=== PATIENT | male | born 1975 | race Caucasian/White ===

== ENCOUNTER → 2021-04-12 10:12 | Outpatient (CLI) | payer OTHER, SELFPAY | PROVIDERS: PCP Pediatrics; Visit Provider Family Medicine | DX: Z23 Encounter for immunization (principal) | CPT/HCPCS: 0004A; 91300 ==

== ENCOUNTER 2022-11-26 14:56 | Emergency (ER) | payer OTHER, SELFPAY ==
[2022-11-26 14:57] VITALS: BP 175/124; PULSE 108; RESP 18; TEMP 36.8; O2SAT 98; BMI 30.9
--- NOTE | 2022-11-26 15:23 | EKG12_ITS ---
Test Reason : DIZZINESS Blood Pressure : / mmHG Vent. Rate : 093 BPM Atrial Rate : 093 BPM P-R Int : 136 ms QRS Dur : 082 ms QT Int : 330 ms P-R-T Axes : 040 029 002 degrees QTc Int : 410 ms Sinus rhythm with marked sinus arrhythmia Otherwise normal ECG Confirmed by KIKA HENSLEY, SAMM ([id number]), supervising film or videotape editor ISHAN BATES ([id number]) on 11/27/2022 9:04:58 AM Referred By: YANNI Confirmed By:SAMM ANAND MD
[2022-11-26] MEDS: Meclizine HCl 25 MG Tablet PO (15:35)
--- NOTE | 2022-11-26 15:38 | RAD_ITS ---
STUDY: X-RAY CHEST REASON FOR EXAM: Male, 47 years old. Hypertension and dizziness beginning this morning. Tingling in the bilateral hands. Chest pain. TECHNIQUE: Single AP portable view of the chest. COMPARISON: None. FINDINGS: The lungs are clear and expanded. There is no demonstrated pleural abnormality. Normal size heart. Normal mediastinum and richard. Normal visualized pulmonary arteries. Normal visualized aortic arch and descending thoracic aorta. Normal visualized thoracic spine. Normal visualized ribs, clavicles, and shoulders. There is no demonstrated abnormality of the visualized soft tissue structures of the upper abdomen. RAD/Chest 1 View (Portable) IMPRESSION: No acute cardiopulmonary disease. Electronically Signed: Eric Ma DO at 16:48 EDT ,
[2022-11-26 15:43] LABS: Absolute Neutrophil Count 4.6 X10^3/uL (2.0-7.7); Basophil# 0.05 X10^3/uL; Basophil% 0.7 % (0-1); Eosinophil# 0.05 X10^3/uL; Eosinophils% 0.7 % (0-5); Hematocrit 45.3 % (40-54); Hemoglobin 15.3 g/dL (13.0-16.5); Lymphocyte % 19.5 % (19-41); Mean Corp Hgb Conc 33.8 g/dL (32-36); Mean Corpuscular Hgb 30.5 pg (27.0-32.0); Mean Corpuscular Volume 90.2 fL (80-94); Mean Platelet Vol. 10.1 fl (6.2-12.0); Monocyte# 0.63 X10^3/uL; Monocyte% 9.4 % (0-10); NRBC Flagged by Analyzer 0 % (0-5); Neutrophil # 4.62 X10^3/uL (2.7-7.7); Neutrophil % 69.4 % (47-70); Platelet Count 324 K/mm3 (150-450); RBC Distribution Width CV 12.2 % (11.6-14.6); RBC Distribution Width SD 39.8 fl (35.1-43.9); Red Blood Count 5.02 M/mm3 (4.6-6.2); White Blood Count 6.7 K/mm3 (4.4-11.0)
[2022-11-26 15:54] LABS: D-Dimer Quantitative (DVT/PE) 0.29 FEU/ug/m (0.27-0.49)
[2022-11-26 16:12] LABS: Anion Gap 7 (5-15); BUN 11 mg/dL (7-18); BUN/Creat Ratio 9.2 RATIO (10-20); Calcium,Total 10.1 mg/dL (8.5-10.1); Chloride 106 mmol/L (98-107); Creatinine, Serum 1.19 mg/dL (0.70-1.30); EST Glomerular Filtration Rate 69 mL/min (>60); Est Glom Filt Rate - Afr Amer 84 mL/min (>60); Estimated Creatinine Clearance 73.45 ml/min; Glucose 162 mg/dL (74-106); Potassium 3.7 mmol/L (3.5-5.1); Sodium Level 141 mmol/L (136-145); Troponin-I HS (w/2H Reflex) 4 pg/mL (3.0-78.0)
[2022-11-26 16:54] VITALS: BP 172/98; PULSE 93; RESP 16; O2SAT 98
[2022-11-26 17:39] LABS: Reflex Troponin-HS? (from REC) Y
[2022-11-26 18:07] VITALS: BP 163/93; BP 166/106; BP 167/91; PULSE 92
[2022-11-26 18:34] LABS: Troponin-I HS 4 pg/mL (3.0-78.0)
--- NOTE | 2022-11-26 19:43 | EX.ED.DYSGE1 ---
HPI History of Present Illness Chief Complaint: Hypertension Narrative Narrative: 47-year-old male presenting with lightheadedness. He does describe it as spinning. No nausea but has some chest tightness. He does not feel like he is going to faint. He does not feel short of breath. He does note that his blood pressure was high and he normally is not this high. He is on hydrochlorothiazide 12.5 mg daily and 40 mg of lisinopril daily. He does not have a headache, visual complaints, paresthesias, slurred speech, facial droop. He states he just felt off and with a combination of symptoms he wanted to get evaluated. No significant cardiac history. [facility] Medical History (Updated 11/26/22 @ 15:29 by Sofie Linda) HTN (hypertension) Home Medications multivitamin (Daily Multiple tablet) 1 ea PO DAILY 07/25/15 [History Last Taken 01/18/16] omega-3 fatty acids 500 mg capsule (Fish Oil) 500 mg PO DAILY 07/25/15 [History Last Taken 01/18/16] hydrochlorothiazide 12.5 mg capsule 12.5 mg PO DAILY 11/26/22 [History Last Taken Unknown] lisinopril 40 mg tablet 40 mg PO DAILY 11/26/22 [History Last Taken Unknown] metoprolol succinate 25 mg tablet,extended release 24 hr 25 mg PO DAILY #30 tabs 11/26/22 [Rx Last Taken Unknown] Allergy/AdvReac Type Severity Reaction Status Date / Time No Known Allergies Allergy Verified 11/26/22 14:58 Social History Smoking Status: Never smoker [facility] ED Constitutional Constitutional ED: Denies chills, fever(s) or sweats Eyes Eyes: Reports other Details: Vertiginous dizzy ; Denies blurry vision or change in vision ENT ENT ED: Denies ear pain or sore throat Cardiovascular Cardiovascular: Reports chest pain; Denies palpitations or racing heartbeat Respiratory/Chest Respiratory/Chest: Denies cough, dyspnea or sputum Gastrointestinal Gastrointestinal: Denies abdominal pain, constipation, diarrhea, nausea or vomiting Genitourinary Genitourinary ED: Denies dysuria, hematuria or urinary frequency Musculoskeletal Musculoskeletal: Denies arthralgias, myalgias or neck pain Integumentary Denies abscess, Abrasions or rash Neurologic Neurologic: Denies headache(s), paresthesias or weakness Psychiatric Psychiatric: Denies anxiety, depression, suicidal ideation or suicidal thoughts Endocrine Endocrinology: Denies polydipsia or polyuria EXAM Physical Exam Const Vital Signs: 11/26/22 14:57 11/26/22 15:31 11/26/22 15:32 Temperature 98.2 F Temperature Source Temporal Pulse Rate 108 H Pulse Rate [Lying] Respiratory Rate 18 Respiratory Effort Normal Non-Labored Respiratory Pattern Normal Blood Pressure 175/124 H Blood Pressure [Lying] Blood Pressure [Sitting (for 1 minute prior to obtaining)] Blood Pressure [Standing (for 1 minute prior to obtaining)] Blood Pressure Mean 141 Blood Pressure Mean [Lying] Blood Pressure Mean [Sitting (for 1 minute prior to obtaining)] Blood Pressure Mean [Standing (for 1 minute prior to obtaining)] Pulse Ox 98 Oxygen Delivery Method Room Air Room Air 11/26/22 16:54 11/26/22 18:07 11/26/22 20:36 Temperature Temperature Source Pulse Rate 93 80 Pulse Rate [Lying] 92 Respiratory Rate 16 18 Respiratory Effort Respiratory Pattern Blood Pressure 172/98 H 146/89 H Blood Pressure [Lying] 167/91 H Blood Pressure [Sitting (for 1 minute prior to obtaining)] 163/93 H Blood Pressure [Standing (for 1 minute prior to obtaining)] 166/106 H Blood Pressure Mean 122 Blood Pressure Mean [Lying] 116 Blood Pressure Mean [Sitting (for 1 minute prior to obtaining)] 116 Blood Pressure Mean [Standing (for 1 minute prior to obtaining)] 126 Pulse Ox 98 99 Oxygen Delivery Method Room Air Positive well nourished General Appearance ED: Negative for pallor HEENT Reports moist mucous membranes and dry mucous membranes Mouth ED: Yes dry mucous membranes Mouth: dry mucous membranes Eyes PERRL and EOMs intact bilaterally Chest Wall inspection of chest normal Resp normal respiratory effort and clear to auscultation bilaterally Cardio regular rhythm Rate: tachycardic GI normal to inspection, nondistended, normoactive bowel sounds Neuro oriented x3 and CN's II-XII intact bilaterally Sensorium / Orientation: alert Motor Exam: strength 5/5 throughout Psych mental status grossly normal Skin no rashes or lesions noted General Skin Exam: Negative for jaundice or pallor MDM MDM MDM Narrative Medical decision making narrative: Patient presenting with dizziness and he states its more like a spinning than a lightheaded. He does have a positive [place]-Hallpike. Differential includes benign positional vertigo, hypertension, ACS, PE, electrolyte abnormalities, dehydration, pneumonia. He does not have any focal neurologic deficits or lateralizing signs or symptoms. I will obtain a CBC to assess white blood cell count, hemoglobin, platelets. BMP to assess renal function, electrolytes, glucose. High-sensitivity troponin and EKG to assess for ischemia and dysrhythmia. Chest x-ray to rule out pneumonia. D-dimer to assess for blood clot. CBC and BMP are unremarkable. D-dimer is negative. High-sensitivity troponin is 4. Delta troponin is 4. EKG sinus rhythm with a ventricular rate of 93 bpm without sign of ischemic change. Blood pressure is down to 163/93. This is much better than his arrival blood pressure. I do not believe he needs a head CT. His work-up is ultimately negative. I tried to reach out to his primary care provider to see if he wants to change his blood pressure meds. I spoke with Collins Valentin who is on-call for her primary. She recommended starting metoprolol extended release 25 mg p.o. daily. Patient minimal this plan. He is discharged stable condition. Impression: 1. Hypertension 2. chest pain 3. lightheadedness. Lab Data Attestation: I reviewed the patient's lab results. Labs: Laboratory Results - last 24 hr 11/26/22 11/26/22 11/26/22 15:37 15:37 15:37 WBC 6.7 RBC 5.02 Hgb 15.3 Hct 45.3 MCV 90.2 MCH 30.5 MCHC 33.8 RDW Std Deviation 39.8 RDW Coeff of Elina 12.2 Plt Count 324 MPV 10.1 Immature Gran % (Auto) 0.300 Neut % (Auto) 69.4 Lymph % (Auto) 19.5 [place] % (Auto) 9.4 Eos % (Auto) 0.7 Baso % (Auto) 0.7 Absolute Neuts (auto) 4.6 Absolute Lymphs (auto) 1.30 Nucleated RBC % 0 D-Dimer Quant (PE/DVT) 0.29 Sodium 141 Potassium 3.7 Chloride 106 Carbon Dioxide 28.0 Anion Gap 7 BUN 11 Creatinine 1.19 Estim Creat Clear Calc 73.45 Est GFR (MDRD) Af Amer 84 Est GFR (MDRD) Non-Af 69 BUN/Creatinine Ratio 9.2 L Glucose 162 H Calcium 10.1 Troponin I High Sens 4 11/26/22 17:55 WBC RBC Hgb Hct MCV MCH MCHC RDW Std Deviation RDW Coeff of Elina Plt Count MPV Immature Gran % (Auto) Neut % (Auto) Lymph % (Auto) [place] % (Auto) Eos % (Auto) Baso % (Auto) Absolute Neuts (auto) Absolute Lymphs (auto) Nucleated RBC % D-Dimer Quant (PE/DVT) Sodium Potassium Chloride Carbon Dioxide Anion Gap BUN Creatinine Estim Creat Clear Calc Est GFR (MDRD) Af Amer Est GFR (MDRD) Non-Af BUN/Creatinine Ratio Glucose Calcium Troponin I High Sens 4 Radiography Diagnostic Testing: Clinical Impression(s) from Imaging Studies Chest X-Ray 11/26/22 15:38 IMPRESSION: No acute cardiopulmonary disease. Electronically Signed: Eric Ma DO at 16:48 EDT Reading Location ID and State: [address] [place] [address] Tel [phone], Service support , Discharge Plan Triage Chief Complaint: Hypertension ED Provider: Cooper Sweeney Dx/Rx/DC Orders Instructions: ED Chest Pain, Noncardiac, ED Dizziness, Uncertain Cause, ED High Blood Pressure Hypertension Prescriptions: New metoprolol succinate 25 mg tablet extended release 24 hr 25 mg PO DAILY Qty: 30 0RF No Action multivitamin [Daily Multiple] 1 EACH tablet 1 ea PO DAILY Fish Oil 500 MG capsule 500 mg PO DAILY Label Comments: instructed to hold preoperatively lisinopril 40 mg tablet 40 mg PO DAILY Label Comments: take 1 tablet by mouth once daily hydrochlorothiazide 12.5 mg capsule 12.5 mg PO DAILY Label Comments: take 1 capsule by mouth once daily Primary Care Provider: Denys Bernal Referrals: Denys Bernal DO [Primary Care Provider] - Disposition Disposition: Home, Self Care Discharge Date/Time: 11/26/22 20:38
[2022-11-26 20:36] VITALS: BP 146/89; PULSE 80; RESP 18; O2SAT 99
== END 2022-11-26 20:38 | disposition home or self-care (01) ==
PROVIDERS: Emergency Provider Student in an Organized Health Care Education/Training Program; PCP Pediatrics; Visit Provider Student in an Organized Health Care Education/Training Program
DX: I10 Essential (primary) hypertension (principal); R42 Dizziness and giddiness; R07.9 Chest pain, unspecified; Z79.899 Other long term (current) drug therapy
CPT/HCPCS: 71045; 80048; 84484; 85025; 85379; 93005; 99285